=== PATIENT | male | born 1960 | race Caucasian/White ===

== ENCOUNTER 2021-03-29 10:29 | Outpatient (CLI) | payer OTHER, SELFPAY ==
[2021-03-29 10:47] LABS: Basophils Absolute Auto 0.04 K/mm3 (0.00-0.10); Basophils Percent Auto 0.7 % (0.0-1.0); Eosinophils Absolute Auto 0.09 K/mm3 (0.02-0.50); Eosinophils Percent Auto 1.5 % (1.0-6.0); Hematocrit 39.6 % (40.0-54.0); Hemoglobin 13.2 g/dL (14.0-18.0); Immature Granulocyte Absolute 0.01 K/mm3 (0.00-0.00); Immature Granulocyte Percent A 0.2 % (0.0-0.0); Lymphocytes Absolute Auto 1.27 K/mm3 (1.10-4.50); Lymphocytes Percent Auto 21.4 % (18.0-42.0); Mean Corpuscular HGB Conc 33.3 g/dL (32.0-36.0); Mean Corpuscular Hemoglobin 32.9 pg (27.0-31.0); Mean Corpuscular Volume 98.8 fL (78.0-102.0); Mean Platelet Volume 9.9 fl (8.7-11.0); Monocytes Absolute Auto 0.47 K/mm3 (0.10-0.90); Monocytes Percent Auto 7.9 % (2.0-11.0); Neutrophils Absolute Auto 4.1 K/mm3 (1.7-7.2); Neutrophils Percent Auto 68.3 % (50.0-70.0); Platelet Count Result 215 K/mm3 (150-420); Red Blood Count 4.01 M/mm3 (4.70-6.10); Red Cell Distribution Width 12.9 % (11.6-14.4); White Blood Count 5.9 K/mm3 (4.8-10.8)
[2021-03-29 11:58] LABS: Alanine Aminotransferase 27 U/L (16-63); Albumin Level 4.3 g/dL (3.4-5.0); Alkaline Phosphatase 65 U/L (46-116); Anion Gap 5 mmol/L (8-16); Aspartate Amino Transferase 13 U/L (15-37); Bilirubin,Total 0.3 mg/dL (0.00-1.00); Blood Urea Nitrogen 15 mg/dL (7-18); Calcium 8.8 mg/dL (8.5-10.1); Carbon Dioxide 32 mmol/L (21-32); Chloride 107 mmol/L (98-108); Cholesterol 120 mg/dL (0-200); Estimated Glomerular Filt Rate > 60; Glucose 94 mg/dL (70-99); HDL Direct 49 mg/dL (40-60); LDL Cholesterol Calculated 65 mg/dL (<130); Osmolality Calculated 298 mOsm/kg (285-295); Potassium 4.3 mmol/L (3.5-5.1); Prostate Specific Antigen 1.1 ng/mL (< OR = 4.0); Sodium 144 mmol/L (136-145); Total Protein 7.1 g/dL (6.4-8.2); Triglycerides 29 mg/dL (0-150)
[2021-04-01 18:24] LABS: Hepatitis C Signal to Cutoff 0.01 ratio (<1.00); Hepatitis C Virus Antibody Nonreactive (Nonreactive)
[2021-04-02 13:34] LABS: Testosterone Free 59.6 pg/mL (35.0-155.0); Testosterone Total 851 ng/dL (250-1100)
== END 2021-03-29 10:30 | disposition home or self-care (01) ==
LOC: CHSLAB 10:32
PROVIDERS: PCP Family Medicine; Visit Provider Family Medicine
DX: Z00.00 Encounter for general adult medical examination without abnormal findings (principal); Z11.59 Encounter for screening for other viral diseases; Z12.5 Encounter for screening for malignant neoplasm of prostate; Z13.6 Encounter for screening for cardiovascular disorders; N52.9 Male erectile dysfunction, unspecified; Z13.220 Encounter for screening for lipoid disorders
CPT/HCPCS: 36415; 80053; 80061; 84153; 84402; 84403; 84443; 85025; G0103

== ENCOUNTER 2021-05-31 10:46 | Outpatient (CLI) | payer OTHER, SELFPAY ==
--- NOTE | ~2021-05-31 | XR_ITS ---
EXAMINATION: XR lumbar spine 2-3V DATE: 05/31/2021 11:15 INDICATION: Low back pain TECHNIQUE: Anteroposterior and lateral views of the lumbar spine, and cone-down lateral view of the l umbosacral junction were obtained. COMPARISON: 07/03/2017 FINDINGS: There are 2 mm of stable retrolisthesis of L3 on L4. The vertebral body heights are maintai chavez. There is moderate loss of intervertebral disc space height throughout the lumbar spine with inte rval worsening and L1-2, L2-3, and L4-5. There is no fracture. Moderate facet osteoarthritis is noted in the lower lumbar spine. Small degenerative osteophytes project from the anterior endplates of mul tiple vertebral bodies. IMPRESSION: 1. Moderate lumbar spondylosis with interval worsening but no acute findings identified. Reviewed, dictated and finalized at location A. IMPRESSION: 1. Moderate lumbar spondylosis with interval worsening but no acute findings id entified.
== END 2021-05-31 10:47 | disposition home or self-care (01) ==
LOC: CHSIMG 10:48
PROVIDERS: PCP Family Medicine; Visit Provider Family Medicine
DX: M54.50 Low back pain, unspecified (principal)
CPT/HCPCS: 72100

== ENCOUNTER 2021-06-04 09:50 | Outpatient (CLI) | payer OTHER, SELFPAY ==
--- NOTE | ~2021-06-04 | MMUS_ITS ---
EXAMINATION: MM diagnostic mammo unilat RT, US breast BI complete HISTORY: Breast mass. TECHNIQUE: Additional 3-D tomosynthesis images of the right breast were performed and synthetic 2-D i mages were generated. CAD analysis was submitted and interpreted. High resolution complete bilateral breast ultrasound was performed. COMPARISON: None BREAST PARENCHYMAL COMPOSITION: The breasts are heterogenously dense, which may obscure small masses. FINDINGS: MAMMOGRAPHIC FINDINGS: There is bilateral symmetric gynecomastia. No discrete suspicious masses or architectural distortion. ULTRASOUND: Complete bilateral US of all 4 quadrants of the breasts and retroareolar region was reviewed. Normal heterogeneous echotexture. Symmetric bilateral subareolar soft tissue, consistent with breast buds fr om gynecomastia. IMPRESSION: 1. No evidence for malignancy in either breast. 2. Recommend clinical management for gynecomastia. BI-RADS Category 2: Benign finding(s). Reviewed, dictated and finalized at location A. IMPRESSION: 1. No evidence for malignancy in either breast. 2. Recommend clinical management for gynecomastia. BI-RADS Category 2: Benign finding(s).
== END 2021-06-04 09:51 | disposition home or self-care (01) ==
LOC: CHSIMG 09:51
PROVIDERS: PCP Family Medicine; Visit Provider Family Medicine
DX: N63.10 Unspecified lump in the right breast, unspecified quadrant (principal)
CPT/HCPCS: 76641; 77065

== ENCOUNTER 2021-06-20 14:07 | Outpatient (RCR) | payer OTHER, SELFPAY ==
--- NOTE | 2021-06-20 15:42 | PTOPEVAL ---
Thank you for referring Thomas Whittington to [facility].? The patient is scheduled to be seen for therapy? ____x/week for ___ weeks. Please review, sign, date and return this plan of care MIGNON. I agree with and certify that the following plan of care is medically necessary. Referring Physician Date Admitting Provider: Attending Provider: Albino Rodriguez MD Referring Provider: *PT Outpatient Evaluation Start: 06/20/21 14:20 Freq: Status: Active Protocol: Document 06/20/21 14:20 JTF (Rec: 06/20/21 15:41 [facility] [id number]) Therapy Assessment Status Assessment Status Assessment Status Evaluation Evaluation Information Problem Diagnosis lumbago Onset 06/18/21 Additional Evaluation Detail Oswestry = 30% functionally declined Subjective Information patient he has been having Query Text:As Reported By Patient/ pain for about 3 years. he Family reports he injured his back while working. he reports he had several rounds of xrays at this time. he reports he just recently had another XRAY of the spine. he reports he does do a lot of lifting at home ( 20-30 boxes) a day due to moving. he reports he is worsening lately with increased lifting, but reports he has had pain since initial bout of injury 3 years ago. he reports he feels worse when getting up in the morning. he reports decreased pain as the day progresses and with medications. he reports he walks like an old man as he feels worse. he reports he cares for his disabled son. patient reports pain with twisting movements. he reports no pian or symptoms down the LE's. Prior Level of Function Comments Additional Prior Level of Function patient reports he is active Comments at home. he reports he had felt worse over the past few months. he reports he has been having pain in the back for 3 years that is progressing as of late. Pain Assessment Timing of Pain Asses
--- NOTE | 2021-09-12 07:46 | PCPTNOTE ---
patient has not been back to therapy in over 2 months. as of this date, he will be dc'd from skilled PT services and all progress towards goals will be taken from his most recent evaluation/note. ZAINAB
== END 2021-06-22 13:54 | disposition home or self-care (01) ==
LOC: CHSPT 14:07
PROVIDERS: PCP Family Medicine; Visit Provider Family Medicine
DX: M54.50 Low back pain, unspecified (principal)
CPT/HCPCS: 97014; 97110; 97161; G0283

== ENCOUNTER 2021-08-23 14:53 | Outpatient (CLI) | payer OTHER, SELFPAY ==
[2021-08-23 15:47] LABS: Alanine Aminotransferase 25 U/L (16-63); Albumin Level 4.3 g/dL (3.4-5.0); Alkaline Phosphatase 75 U/L (46-116); Anion Gap 8 mmol/L (8-16); Aspartate Amino Transferase 20 U/L (15-37); Bilirubin,Total 0.4 mg/dL (0.00-1.00); Blood Urea Nitrogen 13 mg/dL (7-18); Calcium 9.2 mg/dL (8.5-10.1); Carbon Dioxide 32 mmol/L (21-32); Chloride 102 mmol/L (98-108); Estimated Glomerular Filt Rate > 60; Glucose 92 mg/dL (70-99); Osmolality Calculated 294 mOsm/kg (285-295); Potassium 4.3 mmol/L (3.5-5.1); Sodium 142 mmol/L (136-145); Total Protein 7.4 g/dL (6.4-8.2)
[2021-08-23 15:55] LABS: Thyroid Stimulating Hormone Reflex 3.95 u/IU/mL (0.36-3.74)
[2021-08-23 15:56] LABS: Free T4 Free Thyroxine Reflex 0.75 ng/dL (0.76-1.46)
[2021-08-26 08:29] LABS: FSH 10.3 mIU/mL (1.6-8.0); LH 10.1 mIU/mL (1.6-15.2)
[2021-08-27 08:44] LABS: Testosterone Total 986 ng/dL (250-1100)
[2021-08-28 01:55] LABS: Testosterone Free 65.1 pg/mL (46.0-224.0)
[2021-08-29 20:32] LABS: Estradiol, Ultrasensitive 64 pg/mL (< OR = 29)
== END 2021-08-23 14:54 | disposition home or self-care (01) ==
LOC: CHSLAB 14:55
PROVIDERS: PCP Family Medicine; Visit Provider Family Medicine
DX: N62 Hypertrophy of breast (principal); E11.9 Type 2 diabetes mellitus without complications
CPT/HCPCS: 36415; 80053; 82670; 83001; 83002; 84402; 84403; 84439; 84443